=== PATIENT | male | born 1960 | race Caucasian/White ===

== ENCOUNTER → 2021-01-26 | Outpatient (CLI) | payer OTHER ==
[2021-01-26 18:43] LABS: Basophils # (A) 0.04 X 10*3/uL (0.00-0.10); Basophils % (A) 0.5 %; Eosinophils % (A) 1.2 %; HCT 44.1 % (39.6-50.0); HGB 13.1 g/dL (13.0-17.0); Lymphocytes # (A) 1.62 X 10*3/uL (0.90-5.00); Lymphocytes % (A) 18.9 %; MCH 27.2 pg (27.0-32.0); MCHC 29.7 g/dL (32.0-37.0); MCV 91.5 fL (80.0-97.0); Mean Platelet Volume 11.1 fL (9.5-12.2); Monocytes # (A) 0.69 X 10*3/uL (0.20-1.00); Monocytes % (A) 8.1 %; Neutrophils # (A) 6.07 X 10*3/uL (1.80-7.70); Neutrophils % (A) 70.8 %; Platelet Count 204 X 10*3/uL (140-440); RBC 4.82 X 10*6/uL (4.40-5.60); RDW 14.1 % (11.5-14.5); WBC 8.56 X 10*3/uL (4.50-10.00)
[2021-01-26 20:31] LABS: African American GFR (CKD) 84.7 (60.0-200.0); Albumin 4.4 g/dL (3.8-4.9); Albumin/Globulin Ratio 1.57 (1.60-3.17); Anion Gap 15.5 mmol/L (4.00-12.00); BUN/Creat Ratio 13.91 Ratio (12.00-20.00); Blood Urea Nitrogen 15.3 mg/dL (9.0-27.0); Calcium 9.7 mg/dL (8.7-10.3); Carbon Dioxide 21.5 mmol/L (21.6-31.8); Chol/HDL Ratio 3.39 Ratio; Globulin 2.8 g/dL (1.6-3.3); LDL Cholesterol,Calculated 56.7 mg/dL (0.0-131.0); Non-African American GFR(CKD) 73.1 (60.0-200.0); PSA Annual Screen 2.2 ng/mL (0.000-4.000); Potassium 4.3 mmol/L (3.5-5.5); Total Bilirubin 1.3 mg/dL (0.30-1.20); Total Protein 7.2 g/dL (6.2-8.2); Triglycerides 86.3 mg/dL (0.00-149.00); VLDL Calculation 17.26 mg/dL (5.00-40.00)
== END | disposition home or self-care (01) ==
LOC: LABWHC1 08:37
PROVIDERS: ATTEND Internal Medicine Cardiovascular Disease
DX: Z12.5 Encounter for screening for malignant neoplasm of prostate (principal); I10 Essential (primary) hypertension; E78.2 Mixed hyperlipidemia; E55.9 Vitamin D deficiency, unspecified; R73.09 Other abnormal glucose
CPT/HCPCS: 80061; 80053; 84443; 85025; 82306; 83036; 36415; G0103

== ENCOUNTER → 2021-01-26 | Outpatient (CLI) | payer OTHER ==
--- NOTE | 2021-01-26 09:19 | MR ---
EXAMINATION TYPE: MR lumbar spine wo con DATE OF EXAM: 01/26/2021 COMPARISON: None HISTORY: Low right back pain for 20 years TECHNIQUE: Multiplanar, multisequence images of the lumbar spine were acquired without IV contrast. L1-L2: Normal disc appearance without desiccation. No herniation, protrusion or disc bulging. No ca nal stenosis is present. Foramina are patent bilaterally. L2-L3: Posterior broad-based disc bulge causes mild anterior mass effect on the thecal sac. No signif icant foraminal encroachment. L3-L4: Posterior broad-based disc bulge causes minimal anterior mass effect on the thecal sac. There is some facet arthropathy change. Circumferential extension endplate disc complex is noted, no signif icant foraminal encroachment however. L4-L5: Circumferential extension endplate disc complex encroaches on the right neural foramen. There is facet arthropathy change with hypertrophy ligamentum flavum causing posterior lateral mass effect on the thecal sac. Posterior disc bulge effaces the anterior thecal sac. L5-S1: Facet arthropathy changes present encroaches somewhat on the S1 nerve roots and lateral recess es, only minimal circumferential posterior disc bulge is present. Circumferential extension endplate disc complex encroaches minimally on the inferior aspect of the neural foramina Lumbar segments are intact. No paraspinal masses are identified. Conus medullaris has a normal appe arance. Lumbar vertebral bodies show preserved height and there is a spinal curvature. Multilevel spo ndylosis is present. Loss of disc height signal is present at intervertebral levels greatest at L3-4, L1 to. There is endplate discogenic marrow signal change present. No significant spinal stenosis. IMPRESSION: Multilevel degenerative disc disease as described with facet arthropathy. Spinal curvature.
== END | disposition home or self-care (01) ==
LOC: RADMRIMAIN 07:24
PROVIDERS: ATTEND Orthopaedic Surgery Orthopaedic Surgery of the Spine
DX: M51.36 Other intervertebral disc degeneration, lumbar region (principal); M46.96 Unspecified inflammatory spondylopathy, lumbar region; M43.9 Deforming dorsopathy, unspecified
CPT/HCPCS: 72148

== ENCOUNTER → 2021-06-07 | Outpatient (CLI) | payer OTHER ==
--- NOTE | 2021-06-07 12:42 | MR ---
EXAMINATION TYPE: MR shoulder LT wo con DATE OF EXAM: 06/07/2021 COMPARISON: None HISTORY: Lt shoulder pain, AC joint Arthritis vs Bone Tumor TECHNIQUE: Multiplanar, multisequence imaging of the left shoulder is performed without contrast. FINDINGS: Rotator Cuff: There is abnormal thickening of the rotator cuff with some intrasubstance signal sugges ting tendinopathy, there may be a partial undersurface tear centrally, there is no evident retraction . The anterior insertion there is a partial full-thickness tear present of the supraspinatus tendon a t its insertion, sagittal image 7, coronal image #9 Acromioclavicular Joint: Acromioclavicular joint arthropathy is hypertrophic, there is mass effect on the musculotendinous junction of supraspinatus. Distal acromion is downturned, there is a distal acr omial spur. Fluid signal is present in the subacromial subdeltoid bursa. Glenohumeral Joint: There is some mild osteoarthritic change, spurring the humeral head Labrum: Intact Biceps Tendon: Long head of biceps tendon shows positioning within the bicipital groove, small amount of fluid is present along the tendon Bone marrow signal: No focal abnormal marrow signal is appreciated. Other: No additional significant abnormality is appreciated. IMPRESSION: Partial full-thickness tear of the rotator cuff, correlate for impingement, there is acromioclavicula r joint arthropathy. Some osteoarthritic changes present.
== END | disposition home or self-care (01) ==
LOC: RADMRIMAIN 10:13
PROVIDERS: ATTEND Orthopaedic Surgery Sports Medicine
DX: D48.2 Neoplasm of uncertain behavior of peripheral nerves and autonomic nervous system (principal); M19.012 Primary osteoarthritis, left shoulder

== ENCOUNTER → 2022-03-21 | Outpatient (CLI) | payer OTHER ==
--- NOTE | 2022-03-21 09:22 | MR ---
EXAMINATION TYPE: MR lumbar spine wo con DATE OF EXAM: 03/21/2022 COMPARISON: 01/26/2021 HISTORY: DDD Lumbar TECHNIQUE: T1 and T2 axial and sagittal images of the lumbar spine are submitted. FINDINGS: There is no abnormal signal seen within the visualized spinal cord or paraspinal soft tissu es. At T12-L1 there is broad-based disc bulging greater laterally to left with mild left foraminal encroa chment. Moderate degenerative disc disease. Facet arthropathy. At L1-2 there is moderate degenerative disc disease. There is hypertrophic spurring anteriorly with a far right lateral disc protrusion and disc osteophyte complex resulting in moderate right-sided fora irasema encroachment. No Canal stenosis. Facet arthropathy noted. At L2-3 there is degenerative disc disease with circumferential disc bulging but no focal herniation or canal stenosis. Hypertrophic change of the facets and ligamentum flavum. Mild bilateral foraminal encroachment. At L3-4 there is moderate to severe degenerative disc disease with focal right paracentral lateral di sc herniation. Compression of the thecal sac and significant narrowing of the neural foramina. Modera te left-sided foraminal encroachment. There is moderate canal stenosis with ligamentum flavum hypertr ophy and facet arthropathy. At L4-5 there is degenerative disc disease with broad-based disc protrusion or small herniation centr ally with a more focal disc herniation component paracentral to the right resulting in right-sided fo raminal encroachment. Facet arthropathy and ligamentum flavum hypertrophy contribute to bilateral for aminal encroachment greater on the right and moderate canal stenosis. At L5-S1 there is disc desiccation. There is facet arthropathy. No Canal stenosis. Mild foraminal enc roachment. IMPRESSION: 1. Multilevel degenerative disc disease with hypertrophic changes and disc protrusion or herniation r esulting in canal stenosis at L3-4 and L4-L5. 2. Focal right paracentral and lateral small disc herniation L3-L4 with right-sided foraminal encroac hment. 3. Diffuse disc protrusion L4-L5 with a more focal disc herniation component paracentrally to the rig ht resulting in right-sided foraminal encroachment. 4. Right lateral disc protrusion and disc osteophyte complex suspected L1-L2 with moderate right-side d foraminal encroachment stable from prior exam. 5. Multilevel foraminal encroachment and facet arthropathy as discussed above.
== END | disposition home or self-care (01) ==
LOC: RADMRIMAIN 08:26
PROVIDERS: ATTEND Family Medicine
DX: M51.16 Intervertebral disc disorders with radiculopathy, lumbar region (principal); M47.26 Other spondylosis with radiculopathy, lumbar region; M48.061 Spinal stenosis, lumbar region without neurogenic claudication; M99.73 Connective tissue and disc stenosis of intervertebral foramina of lumbar region; M53.9 Dorsopathy, unspecified
CPT/HCPCS: 72148